=== PATIENT | male | born 1950 | race Two or more races ===

== ENCOUNTER 2023-02-08 12:24 | Emergency (ER) | payer MEDICARE ==
[~2023-02-08] VITALS: Ht 170.2 cm; Wt 79.4 kg
[2023-02-08 13:38] LABS: Basophils # (auto) 0 10 ^3/uL (0-0.2); Basophils % (auto) 0.3 % (0.0-2.0); Eosinophils # (auto) 0 10 ^3/uL (0-0.8); Eosinophils % (auto) 0.1 % (0.0-7.0); Hematocrit 47.4 % (41.0-53.0); Hemoglobin 15.5 g/dL (13.5-17.5); Lymphocytes # (auto) 1.7 10 ^3/uL (0.4-5.4); Lymphocytes % (auto) 17.4 % (10.0-50.0); Mean Corpuscular Hemoglobin 29.5 pg (28.0-32.0); Mean Corpuscular Hgb Conc. 32.7 g/dL (32.0-36.0); Mean Corpuscular Volume 90.2 fL (80.0-100.0); Monocytes % (auto) 9.7 % (0.0-12.0); Neutrophils # (auto) 7.3 10 ^3/uL (1.6-8.6); Neutrophils % (auto) 72.5 % (37.0-80.0); Red Blood Cells 5.26 10^6/uL (4.5-5.90)
[2023-02-08 13:45] VITALS: PULSE 83; RESP 20; O2SAT 96
[2023-02-08 14:01] LABS: Alanine Aminotransferase 29 U/L (7-40); Albumin 4.4 g/dL (3.2-4.8); Alkaline Phosphatase 67 U/L (46-116); Anion Gap 6 (5-15); Aspartate Aminotransferase 26 U/L (13-40); BUN/Creatinine Ratio 17.2 (10.0-20.0); Blood Urea Nitrogen 21 mg/dL (9-23); Calcium 10.6 mg/dL (8.5-10.1); Carbon Dioxide 30 mmol/L (20-30); Chloride 106 mmol/L (98-107); Glucose 108 mg/dL (74-106); Potassium 4.6 mmol/L (3.5-5.1); Sodium 142 mmol/L (136-145)
[2023-02-08 14:02] LABS: Bilirubin, Total 0.9 mg/dL (0.2-1.0)
[2023-02-08 14:27] LABS: Magnesium 2.1 mg/dL (1.6-2.6)
[2023-02-08] MEDS ORDERED: MORPHINE SULFATE 4 MG/ML SYR/VIAL IV ONE (14:30)
[2023-02-08] MEDS ORDERED: ONDANSETRON HCL 4 MG/2 ML VIAL IV ONE (14:30)
[2023-02-08 15:27] VITALS: BP 139/86; PULSE 89; RESP 21; TEMP 98.1; O2SAT 92
== END 2023-02-08 16:12 | disposition short-term general hospital (02) ==
LOC: ER 12:24
DX: I62.9 Nontraumatic intracranial hemorrhage, unspecified (principal); R07.89 Other chest pain
CPT/HCPCS: 36415; 70450; 80053; 83735; 84484; 85025; 93005; 96374; 96375; 99291; J2270; J2405